=== PATIENT | female | born 1990 | race American Indian/Alaskan Native ===

== ENCOUNTER 2018-05-09 16:10 | Emergency (ER) | payer OTHER ==
[2018-05-09 16:40] VITALS: BMI 25.1
--- NOTE | 2018-05-09 17:07 | ED PDOC ---
Arrival/HPI - General Chief Complaint: ENT Problem Time Seen by Provider: 05/09/18 16:23 Historian: Patient - History of Present Illness Narrative History of Present Illness (Text): 05/09/18 17:00 28yo female with no pmhx who present for FB sensation to her thorat x a week. States she had odynophagia the day after swallowing donaldson seed, but the pain improved significantly. States she is still having some discomfort when she swallows, so she came to the eD for evaluation. She denies drooling, stridor, dysphagia, trismus, nausea, vomiting, SOB, chest pain. Past Medical History - Provider Review Nursing Documentation Reviewed: Yes - Cardiac Hx Cardiac Disorders: No - Psychiatric Hx Substance Use: No Family/Social History - Physician Review Nursing Documentation Reviewed: Yes Family/Social History: Unknown Family HX Smoking Status: Never Smoked Hx Alcohol Use: Yes Frequency of alcohol use: Socially Hx Substance Use: No Allergies/Home Meds Allergies/Adverse Reactions: Allergies No Known Allergies Allergy (Verified 05/09/18 16:36) Home Medications: Home Meds Medication Instructions Recorded Confirmed No Known Home Med 05/09/18 05/09/18 Review of Systems - Physician Review All systems were reviewed & negative as marked: Yes - Review of Systems Constitutional: Normal Eyes: Normal ENT: Sore Throat Respiratory: Normal Cardiovascular: Normal Gastrointestinal: Normal Genitourinary Female: Normal Musculoskeletal: Normal Skin: Normal Neurological: Normal Endocrine: Normal Hemo/Lymphatic: Normal Psychiatric: Normal Physical Exam Vital Signs Reviewed: Yes Vital Signs Temp Pulse Resp BP Pulse Ox 05/09/18 18:53 97.9 F 88 16 122/68 99 05/09/18 16:52 98.1 F 88 16 122/68 99 Temperature: Afebrile Blood Pressure: Normal Pulse: Regular Respiratory Rate: Normal Appearance: Positive for: Well-Appearing, Non-Toxic, Comfortable Pain Distress: None Mental Status: Positive for: Alert and Oriented X 3 - Systems Exam Head: Present: Atraumatic, Normocephalic Pupils: Present: PERRL Extroacular Muscles: Present: EOMI Conjunctiva: Present: Normal Mouth: Present: Moist Mucous Membranes. No: Drooling, Trismus Pharnyx: Present: Normal. No: ERYTHEMA, EXUDATE, TONSILS ENLARGED, Peritonsilar Swelling, Uvular Deviation, Muffled/Hoarse Voice, Strider, Soft Palate/Uvular Edema Neck: Present: Normal Range of Motion Respiratory/Chest: Present: Clear to Auscultation, Good Air Exchange. No: Respiratory Distress, Accessory Muscle Use Cardiovascular: Present: Regular Rate and Rhythm, Normal S1, S2. No: Murmurs Abdomen: No: Tenderness, Distention, Peritoneal Signs Back: Present: Normal Inspection Upper Extremity: Present: Normal Inspection. No: Cyanosis, Edema Lower Extremity: Present: Normal Inspection. No: Edema Neurological: Present: GCS=15, CN II-XII Intact, Speech Normal Skin: Present: Warm, Dry, Normal Color. No: Rashes Psychiatric: Present: Alert, Oriented x 3, Normal Insight, Normal Concentration Medical Decision Making ED Course and Treatment: 05/10/18 00:12 PT present for stated history. She was not drooling. Lung CTA b/l. In no distress. No trismus. Soft tissue neck xray - No FB noted Result was DW the pt. She was referred to ENT/GI - RAD Interpretation Radiology Orders: 05/09/18 16:47 NECK SOFT TISSUE [RAD] Stat Disposition/Present on Arrival - Present on Arrival Any Indicators Present on Arrival: No History of DVT/PE: No History of Uncontrolled Diabetes: No Urinary Catheter: No History of Decub. Ulcer: No History Surgical Site Infection Following: None - Disposition Have Diagnosis and Disposition been Completed?: Yes Diagnosis: Sore throat Disposition: HOME/ ROUTINE Disposition Time: 18:20 Patient Plan: Discharge Condition: STABLE Discharge Instructions (ExitCare): Sore Throat in Adults Additional Instructions: Follow up with your doctor Return to ED for any new or worsening symptoms Referrals: [facility] at [facility] [place]] - Follow up with primary Cade Penn DO [Doctor Osteopathy] - Follow up with primary Billy Ramos DO [Staff Provider] - Follow up with primary Forms: [employer] (Jamaican)
--- NOTE | 2018-05-09 18:51 | RAD ---
PROCEDURE: Radiographs of the neck (soft tissue). HISTORY: FB sensation COMPARISON: None. TECHNIQUE: Frontal and Lateral Radiographs of the neck, optimized for soft tissue visualization. FINDINGS: SOFT TISSUES: Unremarkable. No radiopaque foreign body seen. CERVICAL SPINE: Grossly unremarkable. OTHER FINDINGS: None. IMPRESSION: No definite radiopaque foreign body identified.
[2018-05-09 18:53] VITALS: BP 122/68; PULSE 88; RESP 16; O2SAT 99
[2018-05-09 18:54] VITALS: TEMP 97.9
== END 2018-05-09 18:53 | disposition home or self-care (01) ==
LOC: ED 16:10
DX: J02.9 Acute pharyngitis, unspecified (principal)